=== PATIENT | male | born 1950 ===

== ENCOUNTER 2024-02-24 19:00 | Inpatient (IN) | payer MEDICARE, OTHER, SELFPAY ==
[2024-02-24 16:08] VITALS: BP 157/97
[2024-02-24 16:32] VITALS: BMI 34.1
--- NOTE | 2024-02-24 16:45 | ED.GENMED ---
History of Present Illness
General
Chief Complaint: Chest Problem
Source: patient
Exam Limitations: none
Time Seen by Provider: 02/24/24 16:36
Nursing documentation reviewed up to this point in time: agreed with
Travel History
Have you had any contact with someone who has COVID-19?: No
Do you have any symptoms of coronavirus? Fever > 100 degrees, chills, cough, shortness of breath, sore throat, loss of taste or smell, muscle aches, or headache?: Yes
Symptoms:: see note
History of Present Illness
History of Present Illness:
73-year-old male presents the emergency department complaining of shortness of breath that began around 1 PM today while he was working. Blood pressures have been elevated. He denies chest pain, pressure or heaviness.
Past History
Past History
ED Past Medical History: HTN, Hypercholesterolemia and Other (Aortic stenosis)
ED Past Surgical History: Cardiac (Cardiac pacemaker)
Social History
Tobacco: Former smoker
Alcohol: None
Drug: None
Employment: Employed
Review of Systems
Review of Systems
Allergies reviewed?: Yes
All Other Systems: Not applicable
Constitutional: Reports no symptoms; Denies fever
EENT: Reports no symptoms
Respiratory: Reports trouble breathing
Cardiac: Reports no symptoms
ABD/GI: Reports no symptoms
: Reports no symptoms
Musculoskeletal: Reports no symptoms
Skin: Reports no symptoms
Neurological: Reports no symptoms
Endocrine: Reports no symptoms
Hematologic/Lymphatic: Reports no symptoms
Psychiatric: Reports no symptoms
Phy Exam
Physical Exam
Physical Exam:
Physical Exam
General: Moderate respiratory distress, afebrile
Neck: supple. no meningeal signs. normal posterior pharynx
Heart: s1/s2 regular rate and rhythm, no murmur. equal radial
pulses. Systolic ejection murmur
HEENT: Pupils equal round reactive to light, EOMI
Lungs: Moderate respiratory distress. Rales bilaterally
Abdomen: normal bowel sounds. not tender. no CVAT
Neuro: alert and oriented. no focal neurological deficits cranial nerves II through XII intact
Skin: no rash
Psychiatric: well kept. interactive and cooperative
Extremities: Bilateral 1+ tibial edema. no calf tenderness. negative homans. good distal pulses
Course
Orders/Labs/Results
Orders:
Orders
02/24/24 Dinner
2 Gram Sodium [Sodium, 2 Gram]
At Your Request: Full Participation
02/24/24 16:11
ECG [Electrocardiogram (*1)] Urgent
Reason for Study: Shortness of Breath
EKG- Treatment ONCE
02/24/24 16:34
COVID-19 Antigen Urgent
Source: Nasal Swab
Complete Blood Count/With Diff Urgent
Comprehensive Metabolic Panel Urgent
NT-proBNP Urgent
Comment: PRO BNP ADDED ON BY FLOOR 4:45PM 02-24-24
Troponin I Urgent
Influenza A+B Rapid Molecular Urgent
KRISHNA Source: Nasal Swab
Specimen Description:
02/24/24 16:43
Add On- LAB Urgent
Tests Added?: pro bnp
02/24/24 16:45
CR Chest Portable - 1 View Urgent
Comment:
Reason For Exam: short of breath, hypoxia
Reason Study Needs to be Portable: Patient Unstable
02/24/24 17:25
Azithromycin 500 mg/250 ml [Zithromax Infusion] 500 mg in 250 ml IV NOW
CefTRIAXone [Rocephin] 1,000 mg IV NOW STA
02/24/24 17:34
D-Dimer Urgent
Lactic Acid Q4H
Comment: CANCEL 2nd LACTIC ACID IF 1st LACTIC ACID IS LESS THAN 2
Blood Culture Q30M
KRISHNA Source: Blood/Venous
Specimen Description:
Blood Culture Q30M
KRISHNA Source: Blood/Venous
Specimen Description:
02/24/24 17:50
Sputum Culture [Respiratory Culture/Gram Stain] Routine
KRISHNA Source: Sputum
Specimen Description:
02/24/24 18:05
EKG [Electrocardiogram (*1)] Urgent
Reason for Study: Other
Other Reason for Exam: with trop
02/24/24 18:06
Troponin I Q6H
02/24/24 18:14
CT Chest Pe Study Urgent
Comment:
Reason For Exam: PE
02/24/24 18:19
Admit/Transfer Patient As Directed
Co-Sign Provider:
Level of Care: Inpatient admission
Assign to:: Telemetry
Physician / Group: zechariah wan
Diagnosis: acute hypoxic resp failure 2/2 R sided pna
Reason for Telemetry: Arrhythmia
Date to Stop Telemetry: 02/27/24
Time to Stop Telemetry: 11:00
Reason for Hospitalization: acute hypoxic resp failure 2/2 R sided pna
Expected length of stay greater than two midnights?: Yes
ELOS- Estimated Length of Stay in days: 4
I certify the patient meets the requirements for IP care: Yes
Code Status As Directed
Resuscitation Status: Full Code
02/24/24 18:33
PULMONARY CONSULT Routine
Consulting Provider: Mary De La Torre
Was physician already notified: Yes
Reason for consult: Hypoxic respiratory failure secondary to right-sided pneumonia
02/24/24 19:31
Acetaminophen [Tylenol] 650 mg PO Q4HPRN PRN
Albuterol Nebs [Ventolin Nebules] 2.5 mg INH R Q4HPRN PRN
Bisacodyl [Dulcolax] 10 mg RECTAL [id number] PRN
Docusate W/Senna [Senokot-S] 1 tablet PO BIDPRN PRN
Polyethylene Glycol Powder [Miralax] 17 grams PO DAILYPRN PRN
02/24/24 19:31
Activity As Directed
Activity Level: With Assistance
Intake/ Output As Directed
Frequency: Per unit guidelines
Vital Signs As Directed
Frequency: Per unit guidelines
Weight As Directed
Frequency: Daily
O2 Therapy [RESP] Routine
Nasal Cannula Liter Flow: 6 LPM
Titrate/Wean O2 to maintain O2 sat greater than (%): 92
Pulse Ox/spot Check [RESP] Routine
Quantity: 1
Rx Incentive Spirometry [RESP] Routine
Frequency: q1h while awake
Ot Eval And Treat Routine
Pt Eval And Treat Routine
Activity Level: With Assistance
DX Deep Vein Thrombosis Video Routine
02/24/24 20:00
Labetalol [Trandate] 100 mg PO BID
02/25/24 00:00
Troponin I Q6H
02/25/24 06:00
Complete Blood Count/With Diff IN AM
Comprehensive Metabolic Panel IN AM
Troponin I Q6H
02/25/24 08:00
Amlodipine [Norvasc] 10 mg PO DAILY
Valsartan [Diovan] 320 mg PO DAILY
02/25/24 18:00
Azithromycin 500 mg/250 ml [Zithromax Infusion] 500 mg in 250 ml IV Q24H
CefTRIAXone [Rocephin] 1,000 mg IV Q24H
Enoxaparin Sodium [Lovenox] 40 mg SC QPM
02/26/24 06:00
Complete Blood Count/With Diff IN AM
Comprehensive Metabolic Panel IN AM
02/27/24 06:00
Complete Blood Count/With Diff IN AM
Comprehensive Metabolic Panel IN AM
02/27/24 11:00
DC Protocol for Telemetry ONCE
02/28/24 06:00
Complete Blood Count/With Diff IN AM
Comprehensive Metabolic Panel IN AM
Abnormal Lab Results
02/24/24 02/24/24 02/24/24
16:34 17:34 18:06
MCHC 32.7 L g/dL
(33.0-37.0)
Abs Immat Gran (auto) 0.1 H 10^3/uL
(0-0.05)
Absolute Lymphs (auto) 1.0 L 10^3/uL
(1.2-3.4)
Immature Gran % 0.8 H %
(0-0.5)
Neutrophils % 77.3 H %
(42.2-75.2)
Lymphocytes % 15.2 L %
(20.5-51.1)
D-Dimer 0.58 H ug/mlFEU
(0.00-0.50)
BUN 25 H mg/dl
(9-20)
Glucose 122 H mg/dl
(70-99)
Troponin I 0.035 H* D ng/ml
02/24/24 16:34
02/24/24 16:34
Vital Signs
Initial and Last Documented VS:
Initial Vital Signs
Temp Pulse Resp BP Pulse Ox
98.3 F 82 20 157/97 87
02/24/24 16:08 02/24/24 16:08 02/24/24 16:08 02/24/24 16:08 02/24/24 16:08
Last Documented Vital Signs
Temp Pulse Resp BP Pulse Ox
97.7 F 71 20 158/81 96
02/24/24 19:45 02/24/24 20:49 02/24/24 19:45 02/24/24 20:49 02/24/24 19:45
MDM/Problems Addressed
Differential Diagnosis Includes:
PE, pneumonia, COPD, CHF
MDM/Problems Addressed:
73-year-old male with right-sided pneumonia, do not suspect PE. Admit to hospitalist. Patient improved with oxygen supplement
Chronic conditions affecting care: HTN
Acute Exacerbation and/or Progression of Chronic Illness: HTN
*Radiology
Radiology exam reviewed: radiology read reviewed (Chest x-ray and CT chest showed no signs of PE, right-sided pneumonia)
*Pulse Oximetry
Patient hypoxic: yes
*EKG
Interpreted by ED Provider?: Yes
EKG Intrepretation Date: 02/24/24
EKG Intrepretation Time: 16:18
Interpretation: abnormal
Comparison EKG: changes noted
Heart Rate: 85
Rate: normal
Rhythm: sinus
[place]: normal axis
Interval: normal interval
QRS Pattern: left bundle branch block
Ischemia: no ischemia
*Biodiesel Plant Superintendent Interpretation
Rate: normal
Interpretation: normal
Heart Rate: 85
Rhythm: sinus
*Critical Care Note
Total Time (30-74mins, 75-104mins- exclusive of procedures): 30
comment:
Critical care statement: A total of 30 minutes of critical care time was provided for this patient. This includes management of unstable vital signs, evaluation of the patient at bedside, reviewing the patient's pertinent medical records, discussion
with consultants, review of old EKGs and review of pertinent medical records. This time with separate from time utilized to perform the aforementioned documented procedures
Patient Management
Social determinants of health affecting care: Living situation
Discussion with other providers: Hospitalist
Escalation/DeEscalation of care consider admission/obs:
Admit indicated
ED Attending Note
-
Portions of this chart may have been created with voice recognition software.� Occasional wrong word or��sound alike� substitutions may have occurred due to the inherent limitations of voice recognition software.
Discharge Plan
Departure
Patient Disposition: Admit
Date of Disposition: 02/24/24
Time of Disposition: 17:27
Admit to: IMU
Presentation/result/management discussed w/ accepting MD/DO: Hospitalist
Patient with high blood pressure during this ER visit?: Yes
Condition: Fair
Discharge Problem:
Pneumonia involving right lung
Interventions
Interventions:
*Risk Screen - Suicide Last Done: 02/24/24 16:32
*General Assessment Last Done: 02/24/24 16:25
*Neglect/Abuse Screening Last Done: 02/24/24 16:32
ED- Fall Risk Assessment Last Done: 02/24/24 16:33
*ED COVID-19 Vaccine History Last Done: 02/24/24 16:32
*Nursing Disposition Last Done: 02/24/24 19:54
ED- Cardiac Assessment Last Done: 02/24/24 19:00
ED- Pulmonary Assessment Last Done: 02/24/24 19:00
Discharge Date and Time
Discharge Date/Time: 02/24/24 19:56
[2024-02-24 16:46] LABS: % Basophils 0.5 % (0-2); % Eosinophils 0.9 % (0-6); % Immature Granulocytes 0.8 % (0-0.5); % Lymphocytes 15.2 % (20.5-51.1); % Monocytes 5.3 % (1.7-9.3); % Neutrophils 77.3 % (42.2-75.2); Absolute Eosinophils 0.1 10^3/uL (0-0.7); Absolute Immature Granulocytes 0.1 10^3/uL (0-0.05); Absolute Monocytes 0.3 10^3/uL (0.1-0.6); Hematocrit 46.8 % (39.0-52.0); Hemoglobin 15.3 g/dL (13.0-18.0); Mean Corp Hgb Conc. 32.7 g/dL (33.0-37.0); Mean Corpuscular Hgb 28.8 pg (27.0-31.0); Mean Corpuscular Volume 88.1 fL (80.0-94.0); Mean Platelet Volume 10.3 fL (7.4-10.4); Nucleated Red Blood Cells % 0 % (-); Platelet Count 205 10^3/uL (130-400); Red Blood Cell Count 5.31 10^6/uL (4.70-6.10); Red Cell Dist. Width 14.2 % (11.5-14.5); White Blood Cell Count 6.4 10^3/uL (4.8-10.8)
[2024-02-24 17:02] LABS: ALT (SGPT) 34 U/L (0-50); AST (SGOT) 26 U/L (17-59); Albumin 4.3 g/dl (3.5-5.0); Alkaline Phosphatase 76 U/L (38-126); Blood Urea Nitrogen 25 mg/dl (9-20); Calcium 9.5 mg/dl (8.4-10.2); Carbon Dioxide 23 mmol/L (22-30); Chloride 105 mmol/L (98-107); Estimated Creatinine Clearance 95 ml/min; Glucose 122 mg/dl (70-99); Potassium 4.1 mmol/L (3.5-5.1); Sodium 137 mmol/L (135-145); Total Bilirubin 0.5 mg/dl (0.2-1.3); eGFR > 60.00
[2024-02-24 17:07] LABS: COVID-19 Antigen Negative (Negative)
[2024-02-24 17:13] LABS: NT-proBNP 228 pg/ml; Troponin I < 0.012 ng/ml
[2024-02-24] MEDS: ROCEPHIN 1000 MG IV (17:40)
[2024-02-24] MEDS: ZITHROMAX INFUSION 250 IV (17:40)
--- NOTE | 2024-02-24 17:48 | HPS.HSE ---
Family Physician
<DIMITRI Benites - Last Filed: 02/24/24 18:25>
-
Family Physician: Yogi Azar
Chief Complaint
<DIMITRI Benites - Last Filed: 02/24/24 18:25>
-
Shortness of breath, hypoxia, dizziness
History of Present Illness
73-year-old male complaining of shortness of breath that began around 1 PM just after eating lunch. 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 He reports this morning feeling somewhat dizzy but went to work. He then developed some chest congestion with
sudden shortness of breath. He got in his car to drive home but called his who told him to come to the hospital while he was in route to the hospital he felt like he was going to pass out behind the wheel but did not.. He was noted to be
hypoxic in the ER 87% on room air improved to 91% on 6 L nasal cannula. He just got back 10 days ago from the [facility] where he was attending a wedding. He states many people were sick with a GI bug but he has not heard of any
respiratory illness. He denies fever, chills, chest pain, palpitations, headache, sore throat, abdominal pain, nausea, vomiting, diarrhea. He has chronic bilateral leg +1 edema. He states approximately 1 week ago he noticed his blood pressure was
elevated. His PCP added labetalol 100 mg twice daily to his drug regimen of Norvasc 10 mg daily and valsartan 320 mg daily.
Past medical history hypertension, HLD, moderate aortic stenosis, mild-moderate MR cardiac Medtronic pacemaker-SSS 07/06/2021, former smoker
Medical History
<DIMITRI Benites - Last Filed: 02/24/24 18:25>
Past Medical History
Past Medical History: Reports Other
Additional Past Medical History:
hypertension
HLD
moderate aortic stenosis
mild-moderate MR
cardiac Medtronic pacemaker-SSS 07/06/2021
former smoker
Chronic leg edema
Past Surgical History: Reports Other
Additional Past Surgical History:
cardiac Medtronic pacemaker-SSS 07/06/2021
Ventral hernia repair many years ago
Social History
Tobacco: Former Smoker (56-year 1 pack a day quit 11 years ago)
Alcohol: Daily (1 shot of whiskey nightly)
Personal:
Living: With Family ( nallely)
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
Family History
Family History: Not pertinent
Allergies / Home Medications
Allergies reflects when Allergies were last updated in [employer].
Home Medications with original date entered in [employer]
Allergy/Medication List:
Allergies
Allergy/AdvReac Type Severity Reaction Status Date / Time
No Known Allergies Allergy Verified 02/24/24 16:11
Home Medications
amlodipine 10 mg PO DAILY 02/24/24
labetalol 100 mg PO BID 02/24/24
valsartan 320 mg PO DAILY 02/24/24
Review of Systems
Angellt;DIMITRI Benites - Last Filed: 02/24/24 18:25>
-
History Source: Patient
A 12 point ROS was completed and negative except as noted: Yes
Constitutional: Denies Fever, Fatigue or Chills
EENT: Denies Sore Throat or Runny Nose
Respiratory: Reports Trouble Breathing (Shortness of breath, chest congestion); Denies Cough
Cardiac: Denies Chest Pain, Diaphoresis, Palpitations or Syncope
Abdomen/GI: Denies Abdominal Pain, Nausea, Vomiting, Diarrhea, Constipated, Bloody Stools or Black Stools
: Denies Dysuria, Frequency, Flank Pain, Incontinence, Difficulty Voiding or Urgency
Musculoskeletal: Reports Edema; Denies Joint Pain
Skin: Denies Itching or Rash
Neurological: Reports Dizzy; Denies Headache or Weakness
Endocrine: Reports No Symptoms
Hematologic/Lymphatic: Reports No Symptoms
Psych: Reports Calm
Physical Exam
<DIMITRI Benites - Last Filed: 02/24/24 18:25>
Vital Signs
Vital Signs
Temp Pulse Resp BP Pulse Ox
98.3 F 85 27 157/97 91
02/24/24 16:08 02/24/24 16:25 02/24/24 16:25 02/24/24 16:08 02/24/24 16:35
Physical Exam
General: Comfortable and Conversant; No Pain, Fever or Chills
HEENT: NormoCephalic, Anicteric, Moist mucous membranes, PERRLA, [place] Conjunctivae, No Ptosis, Neck Nontender and Oxygen (6 L nasal cannula)
Respiratory: Rhonchi
Cardiac: S1/S2, Murmur (Holosystolic murmur 3/6), Peripheral Edema (Chronic bilateral +1) and Other (Paced rhythm); No Rub or Gallop
Breast: Deferred by me
GI: Soft, Non Tender, Non Distended, Normal Bowel Sounds, No Hepatosplenomegaly and Other (Soft ventral hernia present nontender)
Rectal: Deferred by Provider
Genito-urinary: Deferred by me
Musculoskeletal: No Clubbing, No Cyanosis, Edema, Left Lower Extremity (+1 pitting) and Edema, Right Lower Extremity (+1 pitting); No Edema, Left Upper Extremity or Edema, Right Upper Extremity
Skin: Warm and Dry; No Rash
Neuro: AO x 3, No Motor Deficits, Nonfocal/grossly intact, Cranial Nerves Intact and No Sensory Deficits; No Slurred Speech, Facial Droop, Tremors or Sedated
Psych: Calm
Laboratory Results
<DIMITRI Benites - Last Filed: 02/24/24 18:25>
-
02/24/24 16:34
02/24/24 16:34
Laboratory Results
Total Bilirubin 0.5 mg/dl (0.2-1.3) 02/24/24 16:34
AST 26 U/L (17-59) 02/24/24 16:34
ALT 34 U/L (0-50) 02/24/24 16:34
Alkaline Phosphatase 76 U/L (38-126) 02/24/24 16:34
Troponin I < 0.012 ng/ml 02/24/24 16:34
Data Reviewed
<DIMITRI Benites - Last Filed: 02/24/24 18:25>
-
Diagnostic Radiology: Report Reviewed by me
Lab Data: Labs Reviewed by me
Impression/Plan
<DIMITRI Benites - Last Filed: 02/24/24 18:25>
-
Impression/plan:
Admit to telemetry
#Acute hypoxic respiratory failure secondary to Right-sided pneumonia vs poss PE
87% RA , 91% 6 L nasal cannula
Recent travel 10 days ago to [facility]
COVID/Flu-negative
-WBC 6.4, 98.3 F, 157/97
-IV Rocephin, IV Zithromax
-Incentive spirometry
-Sputum culture, blood cultures x 2
-Follow CBC, BMP
-Check CT PE study
-PT/OT/case management consult
CXR: Right-sided pneumonia
#HTN�benign
BP 157/97
-Continue labetalol 100 mg twice daily( recently added 1 week ago by pcp)
-cont amlodipine 10 mg daily, valsartan 320 mg daily
#HLD
- no reported meds
#Permanent Medtronic pacemaker�SSS 06/25/2021
Medtronic; Model#W1 NELSON 1; SN: [id number]
#Aortic stenosis
-Follows with [facility]ology
2D echo 09/13/2023: EF 55 to 60%, no wall abnormalities, stage II diastolic dysfunction. Bicuspid aortic valve with mild to moderate AR peak mean gradient 49 mmHg / 22 mmHg. Mild to moderate MR
#Former smoker
56-year 1 pack a day quit 11 years ago
#Daily alcohol use
1 shot of whiskey with dinner
No concern for withdrawal
DVT prophylaxis
Subcu Lovenox if CT PE study negative for PE
Full code
<Jolie Crespo MD - Last Filed: 02/24/24 18:34>
-
73-year-old returns from [facility] about 10 days ago came to the hospital because of sudden shortness of breath happened today. No fever no chest pain
I saw and examined the patient.
The TRANSFORMER MAKER or PA's note was reviewed and I agree with the note.
Comment:
CVS: S1-S2 normal, systolic murmur at aortic area
Chest: rales right side with scattered wheeze
Abdomen: Soft, NT / Bowel sounds present
Extremities: No edema, normal pulses
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
X-ray reviewed by [id number] pneumonia
# Acute hypoxic respiratory failure secondary to pneumonia
Rule out PE
CT of the chest PE study
Oxygen supplementation
Ceftriaxone Zithromax
Sputum cultures and blood cultures
Pulmonary consultation
# Hypertension-continue labetalol valsartan amlodipine
# Pacemaker
# Aortic stenosis
# Daily alcohol use 1 short of whiskey
Thiamine
MSAS protocol
# Ex-smoker
Impression/plan:
Admit to telemetry
#Acute hypoxic respiratory failure secondary to Right-sided pneumonia vs poss PE
87% RA , 91% 6 L nasal cannula
Recent travel 10 days ago to [facility]
COVID/Flu-negative
-WBC 6.4, 98.3 F, 157/97
-IV Rocephin, IV Zithromax
-Incentive spirometry
-Sputum culture, blood cultures x 2
-Follow CBC, BMP
-Check CT PE study
-PT/OT/case management consult
CXR: Right-sided pneumonia
#HTN�benign
BP 157/97
-Continue labetalol 100 mg twice daily( recently added 1 week ago by pcp)
-cont amlodipine 10 mg daily, valsartan 320 mg daily
#HLD
- no reported meds
#Permanent Medtronic pacemaker�SSS 06/25/2021
Medtronic; Model#W1 NELSON 1; SN: [id number]
#Aortic stenosis
-Follows with [facility]
2D echo 09/13/2023: EF 55 to 60%, no wall abnormalities, stage II diastolic dysfunction. Bicuspid aortic valve with mild to moderate AR peak mean gradient 49 mmHg / 22 mmHg. Mild to moderate MR
#Former smoker
56-year 1 pack a day quit 11 years ago
#Daily alcohol use
1 shot of whiskey with dinner
No concern for withdrawal
DVT prophylaxis
Subcu Lovenox if CT PE study negative for PE
Full code
[2024-02-24 18:02] LABS: Lactic Acid 0.9 mmol/L (0.7-2.0)
[2024-02-24 18:05] LABS: D-Dimer 0.58 ug/mlFEU (0.00-0.50)
[2024-02-24 18:48] LABS: Troponin I 0.035 ng/ml
[2024-02-24 19:45] VITALS: BP 158/81
[2024-02-24] MEDS: MYSOLINE 125 MG PO (20:48)
[2024-02-24] MEDS: TRANDATE 100 MG PO (20:49)
[2024-02-24 21:00] VITALS: BMI 33.0
[2024-02-24] MEDS: DIOVAN 320 MG PO (22:22)
[2024-02-24 23:25] VITALS: BP 121/60
[2024-02-25] VITALS (7 sets, daily range): BP systolic 142–178; BP diastolic 76–98
[2024-02-25 01:36] LABS: Troponin I 0.039 ng/ml
--- NOTE | 2024-02-25 06:35 | PTCARENOTE ---
Pt admitted from ED, AAOx3. No c/o pain. Ambulated without issues with standby assist. Pt afebrile. Intermittently hypertensive. CORPORATE INVESTIGATOR aware. Trending troponin levels overnight, EKG done x1. Pt on 5L O2 via NC. No dyspnea on exertion or cough
noted. Call calvo within reach. Awaiting further plan.
[2024-02-25 06:47] LABS: % Basophils 0.3 % (0-2); % Eosinophils 0.7 % (0-6); % Immature Granulocytes 0.3 % (0-0.5); % Lymphocytes 17.1 % (20.5-51.1); % Monocytes 9.6 % (1.7-9.3); Absolute Eosinophils 0.1 10^3/uL (0-0.7); Absolute Lymphocytes 1.3 10^3/uL (1.2-3.4); Absolute Monocytes 0.7 10^3/uL (0.1-0.6); Absolute Neutrophils 5.4 10^3/uL (1.4-6.5); Hematocrit 44.4 % (39.0-52.0); Hemoglobin 15.1 g/dL (13.0-18.0); Mean Corpuscular Hgb 29.4 pg (27.0-31.0); Mean Corpuscular Volume 86.4 fL (80.0-94.0); Mean Platelet Volume 10.1 fL (7.4-10.4); Nucleated Red Blood Cells % 0 % (-); Platelet Count 202 10^3/uL (130-400); Red Blood Cell Count 5.14 10^6/uL (4.70-6.10); Red Cell Dist. Width 14.1 % (11.5-14.5); White Blood Cell Count 7.5 10^3/uL (4.8-10.8)
[2024-02-25 07:27] LABS: Troponin I 0.025 ng/ml
[2024-02-25 07:28] LABS: ALT (SGPT) 30 U/L (0-50); AST (SGOT) 24 U/L (17-59); Albumin 3.8 g/dl (3.5-5.0); Alkaline Phosphatase 69 U/L (38-126); Blood Urea Nitrogen 19 mg/dl (9-20); Calcium 9.3 mg/dl (8.4-10.2); Carbon Dioxide 29 mmol/L (22-30); Chloride 104 mmol/L (98-107); Estimated Creatinine Clearance 107 ml/min; Glucose 99 mg/dl (70-99); Potassium 4.3 mmol/L (3.5-5.1); Sodium 139 mmol/L (135-145); Total Bilirubin 0.8 mg/dl (0.2-1.3); Total Protein 6.5 g/dl (6.3-8.2); eGFR > 60.00
[2024-02-25] MEDS: MYSOLINE 125 MG PO ×2 (07:38→22:06)
[2024-02-25] MEDS: TRANDATE 100 MG PO ×2 (07:38→20:23)
[2024-02-25] MEDS: PROTONIX 40 MG PO (07:38)
[2024-02-25] MEDS: NORVASC 10 MG PO (07:38)
--- NOTE | 2024-02-25 09:51 | W.PN.HOSP.TC ---
Addendum entered and electronically signed by Jolie Crespo MD 02/25/24 10:46:
Troponin elevation-nonischemic myocardial injury likely
Addendum entered and electronically signed by Jolie Crespo MD 02/25/24 10:46:
After reviewing the case with pulm, we have decided to try 1 dose of Lasix today and repeat chest x-ray in the morning
Patient does have moderate mitral regurgitation and aortic stenosis
Sudden onset without fever, elevated white count does not quite fit with pneumonia
? Atypical pulmonary edema
Original Note:
Today's Communication/Plan
-
Wean oxygen as tolerated
Encourage out of bed and activity
Continue antibiotics
Await blood cultures
Assessment / Plan
Assessment / Plan
CT of the chest-no PE. Right upper lobe, right lower lobe and right middle lobe pneumonia, small right pleural effusion
He feels much better
Cardiovascular system S1-S2 appreciated
Few rales right side
Abd-Soft and nontender
TRAVELING PASSENGER AGENT nonfocal
# Multilobar pneumonia on the right side
Treat as community-acquired pneumonia
Acute hypoxic respiratory failure secondary to pneumonia
No PE
Oxygen supplementation, wean as tolerated.
Ceftriaxone Zithromax
Sputum cultures if possible ,blood cultures pending
Pulmonary consultation appreciated
# Hypertension-continue labetalol valsartan amlodipine
# Essential tremors-on primidone (patient confirms no history of seizures)
# Pacemaker
# Aortic stenosis-OP Cards eval
# Daily alcohol use 1 short of whiskey
Thiamine
MSAS score
# Ex-smoker
# DVT prophylaxis- Lovenox
D/W Pulm
Anticipated Discharge: Within 24 hours
Subjective/Interval History
-
Date of Service: February 25, 2024
Objective Data
-
Labs:
Laboratory Results
02/25/24
06:40
WBC 7.5
Hgb 15.1
Hct 44.4
Plt Count 202
Sodium 139
Potassium 4.3
Chloride 104
Carbon Dioxide 29
BUN 19
Creatinine 0.7
Glucose 99
Calcium 9.3
Total Bilirubin 0.8
AST 24
ALT 30
Alkaline Phosphatase 69
Vital Signs:
Vital Signs
Temp Pulse Resp BP Pulse Ox
98.1 F 63 18 153/78 100
02/25/24 07:52 02/25/24 07:52 02/25/24 07:52 02/25/24 07:52 02/25/24 07:52
--- NOTE | 2024-02-25 10:09 | CON.PUL ---
Consultation
Consultation Request
Date/Time Consultation Requested: 02/24
Date/Time Consultation Performed: 02/24
Reason for Consultation: Hypoxia, pneumonia
Medical History
-
History of Present Illness:
History obtained from the chart, patient and reviewing outpatient records. Patient is a 73-year-old male with hypertension, mild aortic stenosis, pacemaker for sick sinus syndrome who recently traveled to [facility] with family. Patient
developed increased shortness of breath, dizziness and some diarrhea. He stated his symptoms started pretty quickly over the last few days. 10 days ago he returned from [facility], had some occasional diarrhea. There were some GI illness
going around at that time. He denies any fevers, chills, sweats. He also notes lower extremity swelling and is on antihypertensive therapy. Upon arrival to [facility], afebrile, pulse 85, breathing at 27, blood pressure 157/97, 87%.
Normal white count, COVID and flu negative. CT chest was negative for PE but showed right-sided infiltrate. She was given ceftriaxone and azithromycin in the ED. Cultures obtained. We are asked to comment on his pulmonary process
Presently he is feeling he is back to his baseline. Denies PND, orthopnea, falls, syncope.
.
PMH: Hypertension, sick sinus syndrome with pacemaker placement. History of lower gastric ulcer with H. pylori, hospitalized at [facility] with GI bleed May 2023. History of bicuspid aortic valve with moderate aortic stenosis
Past Medical History
Past Medical History: None (See above)
Past Surgical History: None (See above)
Social History
Tobacco: Former Smoker ([id number], quit 2012)
Alcohol: Daily (1 shot of whiskey a day)
Drug: None
Living: With Family
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
Environmental Exposures: Born in [facility]
Family History
Family History: Other (Family history negative for blood clots, lung cancer, lung disease)
Allergies / Home Medications
Allergies
Allergy/AdvReac Type Severity Reaction Status Date / Time
No Known Allergies Allergy Verified 02/24/24 16:11
Home Medications
�Medication �Instructions �Recorded �Confirmed �Last Taken �Type
amlodipine 10 mg tablet 10 mg PO DAILY 02/24/24 02/24/24 02/24/24 History
labetalol 200 mg tablet 100 mg PO BID 02/24/24 02/24/24 02/24/24 History
pantoprazole 40 mg tablet,delayed 40 mg PO DAILY 02/24/24 02/24/24 02/24/24 History
release
primidone 250 mg tablet 125 mg PO BID 02/24/24 02/24/24 02/24/24 History
valsartan 320 mg tablet 320 mg PO QPM 02/24/24 02/24/24 02/23/24 History
Review of Systems
Vitals / Labs / Diagnostic Testing
Vital Signs
Temp Pulse Resp BP Pulse Ox
98.1 F 63 18 153/78 100
02/25/24 07:52 02/25/24 07:52 02/25/24 07:52 02/25/24 07:52 02/25/24 07:52
Lab Data
02/25/24 06:40
02/25/24 06:40
Microbiology
02/24/24 16:34 Nasal Swab Influenza Types A & B (CINDY) - Final
Negative for Influenza A & B, NAAT
Negative results must be combined with clinical observations
and patient history.
Nucleic Acid Amplification test (NAAT)performed on the
[employer] platform.
Diagnostic Testing:
Physical Exam
-
HEENT: Normocephalic and Anicteric
Cardiovascular: S1/S2, Regular Rhythm, Murmur (2/6 systolic murmur), Peripheral Edema (tr) and Calf Tenderness (n)
Respiratory: Wheeze (n), Rales (n), Rhonchi (n) and Non-Labored Respirations
GI: Soft, Non Distended and Non Tender
Neurology: Awake, Alert and No Motor Deficits (Able to sit up without assistance)
Skin: Good Color and Other (No clubbing, cyanosis)
General: Comfortable
Assessment
-
73-year-old male with history of hypertension, hyperlipidemia, sick sinus syndrome with pacemaker placement and aortic stenosis who presents with acute onset of shortness of breath. He also had some nonspecific symptoms of lightheadedness,
dizziness and loose stool. Found to be hypoxic requiring 6 L. We are asked to help from pulmonary standpoint
Acute hypoxic respiratory insufficiency, 87% room air in the ED
Right-sided infiltrate per CT imaging
Suspected Multi lobar pneumonia
Cannot rule out component of heart failure
Crackles on exam in ED
Presently resolved
Hypertension, poorly controlled
Mildly elevated troponin noted
Conditions present prior to admission
Hypertension/hyperlipidemia
Sick sinus syndrome, history of pacemaker
Moderate aortic stenosis
Bicuspid aortic valve
Mild pulm hypertension, PA pressure 45, per echo August 2023
50+ pack year history of smoking quit 2012
Daily alcohol use
Suspected sleep disordered breathing
Plan/recommendations
At this time, patient appears to be comfortable. He states he is feeling much better, back to his baseline. Salient features include CT imaging with suggested right-sided pneumonia. Patient denies any history of nausea/emesis but does admit to
some loose stool
Rapid onset and rapid improvement suggest possibility of pulmonary edema
Reviewed outpatient records. Patient apparently has poorly controlled blood pressure
Patient denies any dietary indiscretion or significant weight changes. He admits to chronic lower extreme edema
EKG with paced rhythm
Moving forward
Continue with empiric antibiotics for presumed community-acquired pneumonia
Rapid onset and rapid improvement suggest possible component of pulm edema
proBNP 228
Mildly elevated troponin noted
Check ambulatory saturation on room air
EKG with paced rhythm
If symptoms persist, may require additional testing, cardiac evaluation
Would recommend outpatient sleep evaluation given cardiac comorbidities
Reviewed with patient
Reviewed with primary service
Will follow
[2024-02-25] MEDS: VITAMIN B1 200 MG PO (11:05)
[2024-02-25] MEDS: LASIX 20 MG IV (11:05)
[2024-02-25] MEDS: LOVENOX 40 MG SC (17:11)
[2024-02-25] MEDS: STERILE WATER FOR INJECTION 10 ML IV (17:12)
[2024-02-25] MEDS: ROCEPHIN 1000 MG IV (17:12)
[2024-02-25] MEDS: ZITHROMAX INFUSION 250 IV (17:12)
[2024-02-25] MEDS: DIOVAN 320 MG PO (20:23)
[2024-02-26 03:00] VITALS: BP 158/81
[2024-02-26 06:00] VITALS: BMI 31.4
[2024-02-26 06:55] LABS: % Basophils 0.3 % (0-2); % Eosinophils 0.4 % (0-6); % Immature Granulocytes 0.1 % (0-0.5); % Lymphocytes 19.8 % (20.5-51.1); % Monocytes 9.8 % (1.7-9.3); % Neutrophils 69.6 % (42.2-75.2); Absolute Lymphocytes 1.5 10^3/uL (1.2-3.4); Absolute Monocytes 0.7 10^3/uL (0.1-0.6); Absolute Neutrophils 5.2 10^3/uL (1.4-6.5); Hematocrit 45.7 % (39.0-52.0); Hemoglobin 14.8 g/dL (13.0-18.0); Mean Corp Hgb Conc. 32.4 g/dL (33.0-37.0); Mean Corpuscular Hgb 28.6 pg (27.0-31.0); Mean Corpuscular Volume 88.4 fL (80.0-94.0); Mean Platelet Volume 10.6 fL (7.4-10.4); Nucleated Red Blood Cells % 0 % (-); Platelet Count 218 10^3/uL (130-400); Red Blood Cell Count 5.17 10^6/uL (4.70-6.10); Red Cell Dist. Width 13.9 % (11.5-14.5); White Blood Cell Count 7.5 10^3/uL (4.8-10.8)
[2024-02-26 07:24] LABS: Blood Urea Nitrogen 21 mg/dl (9-20); Calcium 9.2 mg/dl (8.4-10.2); Carbon Dioxide 30 mmol/L (22-30); Chloride 101 mmol/L (98-107); Estimated Creatinine Clearance 91 ml/min; Glucose 120 mg/dl (70-99); Potassium 4.2 mmol/L (3.5-5.1); Sodium 137 mmol/L (135-145); eGFR > 60.00
[2024-02-26] MEDS: PROTONIX 40 MG PO (07:48)
[2024-02-26] MEDS: VITAMIN B1 200 MG PO (07:48)
[2024-02-26] MEDS: MYSOLINE 125 MG PO ×2 (07:48→19:47)
[2024-02-26] MEDS: NORVASC 10 MG PO (07:49)
[2024-02-26] MEDS: TRANDATE 100 MG PO ×2 (07:49→19:47)
[2024-02-26 07:51] VITALS: BP 155/77
--- NOTE | 2024-02-26 10:09 | W.PN.PUL3 ---
Today's Communication / Plan
-
Transition to oral doxycycline
Consider follow-up with cardiology. Patient has established landing scaler
Patient is symptom-free at this time
Strongly consider outpatient HST, recommendations left in chart
Disposition efforts
Assessment
-
73-year-old male with history of hypertension, hyperlipidemia, sick sinus syndrome with pacemaker placement and aortic stenosis who presents with acute onset of shortness of breath. He also had some nonspecific symptoms of lightheadedness,
dizziness and loose stool. Found to be hypoxic requiring 6 L. We are asked to help from pulmonary standpoint
Acute hypoxic respiratory insufficiency, 87% room air in the ED
Right-sided infiltrate per CT imaging
Suspected Multi lobar pneumonia
Cannot rule out component of heart failure
Crackles on exam in ED
Presently resolved
Hypertension, poorly controlled
Mildly elevated troponin noted
Conditions present prior to admission
Hypertension/hyperlipidemia
Sick sinus syndrome, history of pacemaker
Moderate aortic stenosis
Bicuspid aortic valve
Mild pulm hypertension, PA pressure 45, per echo August 2023
50+ pack year history of smoking quit 2012
Daily alcohol use
Suspected sleep disordered breathing
Plan/recommendations
At this time, patient appears to be comfortable. He states he is feeling much better, back to his baseline.
Rapid onset and rapid improvement suggest possibility of pulmonary edema
Chest x-ray today has improved
Reviewed outpatient records. Patient apparently has poorly controlled blood pressure
Patient denies any dietary indiscretion or significant weight changes. He admits to chronic lower extreme edema
EKG with paced rhythm
Moving forward
Continue with empiric antibiotics for presumed community-acquired pneumonia, okay to transition to doxycycline to complete 7-day course
Rapid onset and rapid improvement suggest possible component of pulm edema
proBNP 228
Mildly elevated troponin noted
EKG with paced rhythm
Consider follow-up with landing scaler (Garo Guerra). Last saw 01/26/24
If symptoms persist, may require additional testing, cardiac evaluation
Would recommend outpatient sleep evaluation given cardiac comorbidities
Reviewed pathophysiology of untreated sleep disordered breathing
Reviewed with patient
Reviewed with primary service
Disposition efforts
Subjective Data
-
Date of Service:
Date of Service: February 26, 2024
Subjective:
Patient examined earlier this morning. Late entry. Patient feels he is back to his baseline. Denies chest pain, shortness of breath, cough, nausea, abdominal pain. Ambulating to the bathroom without difficulty
Objective Data
Data Reviewed
Vital Signs / I&O / Oxygen:
Vital Signs
Temp Pulse Resp BP Pulse Ox
98.6 F 68 18 155/77 95
02/26/24 07:51 02/26/24 07:51 02/26/24 07:51 02/26/24 07:51 02/26/24 07:51
Intake and Output
02/25/24 02/26/24 02/27/24
06:59 06:59 06:59
Intake Total 360 / 360
Balance 360 / 360
SaO2 95
Nasal Cannula flow liters per 5
minute
Physical Exam
General: Comfortable
HEENT: Normocephalic, Anicteric and Other (Narrow posterior oropharynx)
Cardiovascular: S1-S2, Regular Rhythm, Murmur (n), Rub (n), Peripheral Edema (n) and Calf Tenderness (n)
Respiratory: Wheeze (n), Crackles (Minimal at base), Rhonchi (n) and Non-Labored Respirations
GI: Soft, Non Distended and Non Tender
Neurology: Awake, Alert and No Motor Deficits (Ambulating)
Skin: Jaundice (n), Rash (n) and Bruising (n)
Labs/Micro/Reports
Lab Data
02/26/24 06:26
02/26/24 06:26
Microbiology
02/24/24 17:34 Blood/Venous Blood Culture - Preliminary
No Growth in 24 hours- Final report to follow
02/24/24 17:34 Blood/Venous Blood Culture - Preliminary
No Growth in 24 hours- Final report to follow
02/24/24 16:34 Nasal Swab Influenza Types A & B (CINDY) - Final
Negative for Influenza A & B, NAAT
Negative results must be combined with clinical observations
and patient history.
Nucleic Acid Amplification test (NAAT)performed on the
[employer] platform.
--- NOTE | 2024-02-26 10:32 | CM ---
Met with patient at bedside. He lives with in 2 level home with 7 steps to enter. there is a bathroom on each floor.
he is independent prior to admit and in room. he states his car is outside and he hopes to go home today.
he does not own or use any DME.
PCP Rm Azar
RX [facility]
Plan: home no needs.
[2024-02-26] MEDS: LOW STRENGTH ASPIRIN 81 MG PO (11:38)
[2024-02-26 11:51] VITALS: BP 138/79
--- NOTE | 2024-02-26 13:38 | W.PN.HOSP.TC ---
Today's Communication/Plan
-
Cards eval
If needs ECHO will keep
Assessment / Plan
Assessment / Plan
CT of the chest-no PE. Right upper lobe, right lower lobe and right middle lobe pneumonia, small right pleural effusion
He feels much better
Cardiovascular system S1-S2 appreciated
Few rales right side
Abd-Soft and nontender
[employer]IAL [employer]Y [employer]ER nonfocal
# Acute Hypoxic Resp failure-6L O2 on admission
Multilobar pneumonia on the right side on imaging
Treated as community-acquired pneumonia
No PE
Patient has been weaned off of oxygen
Ceftriaxone Zithromax, change to PO
Cultures negative
Symptomatology, no white count or fever-not convinced this is entirely pneumonia alone.
Patient was given a dose of Lasix yesterday with improvement in chest x-ray, oxygenation
His weight has come down by several pounds in the past 48 hours
Unclear if there is also an element of pulmonary edema-atypical
Spoke to outpatient rig site engineer Dr. Garo Guerra , agrees with addition of ASA. Unfortunately cannot see pt soon after discharge.
Therefore request a cardiology eval here prior to discharge
#Trop Likely nonischemic myocardial injury. Add ASA
# Hypertension-On Labetalol Valsartan Amlodipine
Not sure with Moderate in Aug 2023 if afterload reducing meds are best choice.
# Essential tremors-on primidone (patient confirms no history of seizures)
# Pacemaker
# Moderate Bicuspid Aortic stenosis- and MR per ECHO 09/08
# Daily alcohol use 1 short of whiskey
Thiamine
MSAS score
# PUD-patient was supposed to get endoscopy Tuesday. He is aware that this may need to be postponed in a few weeks.
# Ex-smoker
# DVT prophylaxis- Lovenox
D/W Pulm
Spoke to OP Cards.
Anticipated Discharge: Within 24 hours
Subjective/Interval History
-
Date of Service: February 26, 2024
Objective Data
-
Labs:
Laboratory Results
02/26/24
06:26
WBC 7.5
Hgb 14.8
Hct 45.7
Plt Count 218
Sodium 137
Potassium 4.2
Chloride 101
Carbon Dioxide 30
BUN 21 H
Creatinine 0.8
Glucose 120 H
Calcium 9.2
Vital Signs:
Vital Signs
Temp Pulse Resp BP Pulse Ox
98.5 F 67 18 138/79 96
02/26/24 11:51 02/26/24 11:51 02/26/24 11:51 02/26/24 11:51 02/26/24 11:51
I&O
02/25/24 02/26/24 02/27/24
06:59 06:59 06:59
Intake Total 360 / 360
Balance 360 / 360
[2024-02-26 15:49] VITALS: BP 140/76
[2024-02-26] MEDS: LOVENOX 40 MG SC (17:03)
[2024-02-26] MEDS: VIBRAMYCIN 100 MG PO (19:47)
[2024-02-26] MEDS: DIOVAN 320 MG PO (19:47)
[2024-02-26 19:51] VITALS: BP 152/79
[2024-02-26 23:00] VITALS: BP 158/83
--- NOTE | 2024-02-26 23:09 | CON.CAR ---
Consultation
Consultation Request
Date/Time Consultation Requested: 02/26/2024 1331
Date/Time Consultation Performed: 02/26/2024 1400
Requesting Provider: Jolie Crespo MD
Performing Provider: Kamar Pope DO
Reason for Consultation: SOB
Medical History
-
Chief Complaint: Cough, SOB
History of Present Illness:
Patient is a pleasant 73-year-old male with a past medical history significant for hypertension, hyperlipidemia, moderate aortic stenosis, mild to moderate MR, sick sinus syndrome status post dual-chamber Medtronic pacemaker 06/2021, former smoker
who presents with a 1 day history of sudden onset shortness of breath and cough. In the emergency department, patient was noted to be hypoxic on room air with improvement on nasal cannula. Chest x-ray in the emergency department demonstrated
right-sided pneumonia and patient was initiated on antibiotic therapy. Patient afebrile no white count however significant improvement in overall breathing. Patient was evaluated by pulmonology who recommended transition to oral antibiotic
therapy. Due to acute onset and resolution, there was concern for pulmonary edema however this was not demonstrated on imaging. BNP 228. Leading to this event, no chest pain, other episodes of shortness of breath, PND, orthopnea, edema, or
abdominal distention. In review patient today, he reports that he overall feels well and back to baseline without shortness of breath, cough, chest pain, shortness of breath, palpitations, lightheadedness, dizziness, near-syncope, syncope, PND,
orthopnea, edema, or weakness.
Past Medical History
Past Medical History: Other (See HPI)
Past Surgical History: Other (Medtronic pacemaker 06/2021, hernia repair)
Social History
Tobacco: Former Smoker
Alcohol: Occasional
Drug: None
Personal:
Living: With Family
Employment: Employed
Family History
Family History: Reviewed & Not Pertinent
Allergies / Home Medications
Allergy/AdvReac Type Severity Reaction Status Date / Time
No Known Allergies Allergy Verified 02/24/24 16:11
�Medication �Instructions �Recorded �Confirmed �Type
amlodipine 10 mg tablet 10 mg PO DAILY 02/24/24 02/24/24 History
labetalol 200 mg tablet 100 mg PO BID 02/24/24 02/24/24 History
pantoprazole 40 mg tablet,delayed 40 mg PO DAILY 02/24/24 02/24/24 History
release
primidone 250 mg tablet 125 mg PO BID 02/24/24 02/24/24 History
valsartan 320 mg tablet 320 mg PO QPM 02/24/24 02/24/24 History
Review of Systems
-
History Source: Patient
Constitutional: No Symptoms
EENT: No Symptoms
Respiratory: Cough and Trouble Breathing
Cardiac: No Symptoms
Abdomen/GI: No Symptoms
: No Symptoms
Musculoskeletal: No Symptoms
Skin: No Symptoms
Neurological: No Symptoms
Endocrine: No Symptoms
Hematologic/Lymphatic: No Symptoms
Physical Exam
Vital Signs
Temp Pulse Resp BP Pulse Ox
98.0 F 66 18 152/79 97
02/26/24 19:51 02/26/24 19:51 02/26/24 19:51 02/26/24 19:51 02/26/24 19:51
Lab Results
02/26/24 06:26
02/26/24 06:26
Troponin I 0.025 ng/ml D 02/25/24 06:40
Eqb-P-Wlhfvtxoqlp Pept 228 pg/ml 02/24/24 16:34
Physical Exam
General: Well Developed, Well Nourished, No Apparent Distress and Comfortable
HEENT: Normocephalic, Anicteric and Moist Mucous Membranes
Respiratory: Clear and Other (No wheezes, rhonchi, rales)
Cardiac: S1/S2, Regular Rhythm and Other (2/6 ELIDA, no rub, gallop)
Breast: Deferred by me
GI: Soft, Non Tender, Non Distended and Normal Bowel Sounds
Rectal: Deferred by Provider
Musculoskeletal: No Clubbing, No Cyanosis and No Edema
Skin: Warm and Dry
Neuro: Awake, Alert, Oriented and No Motor Deficits
Psych: Calm
Impression / Plan
-
Primary senior chemical engineer: Dr. Garo Guerra ([facility])
Impression:
Acute hypoxic respiratory failure, resolved
Right lung pneumonia on antibiotics
Troponin elevation, possibly type II ID in the setting of respiratory failure
Bicuspid aortic valve with moderate aortic stenosis
Hypertension
Hyperlipidemia
Sick sinus syndrome status post dual-chamber Medtronic pacemaker 06/2021
Daily alcohol use
GERD
Former smoker
Echo 09/13/2023: Normal LV, RV size and function, EF 55 to 60%, bicuspid aortic valve with moderate aortic stenosis mean gradient 22 mmHg, mild to moderate MR.
Plan:
� 2D echocardiogram
� Monitor on telemetry
� Antibiotic therapy per primary and pulmonary service
� Would likely benefit from outpatient ischemic evaluation in the setting of mild troponin elevation with respiratory failure; patient asymptomatic currently. Would started on aspirin 81 mg daily unless contraindication
� Lipid panel for risk factor stratification
� Recommend close follow-up with Dr. Garo Guerra 1 to 2 weeks following discharge from this hospitalization
Data Reviewed
-
EKG: Tracing Personally Visualized and interpreted
Radiology: Report Reviewed by me
Medical Tests (Nuc Med, Echo etc): Report Reviewed by me
Labs: Labs Reviewed by me
Old Records: Reviewed
[2024-02-27 03:00] VITALS: BP 144/82
[2024-02-27 06:00] VITALS: BMI 31.4
[2024-02-27] MEDS: PROTONIX 40 MG PO (06:01)
[2024-02-27 06:49] LABS: % Basophils 0.4 % (0-2); % Eosinophils 0.9 % (0-6); % Immature Granulocytes 0.4 % (0-0.5); % Lymphocytes 27.7 % (20.5-51.1); % Monocytes 10.5 % (1.7-9.3); % Neutrophils 60.1 % (42.2-75.2); Absolute Lymphocytes 1.3 10^3/uL (1.2-3.4); Absolute Monocytes 0.5 10^3/uL (0.1-0.6); Absolute Neutrophils 2.8 10^3/uL (1.4-6.5); Hematocrit 42.2 % (39.0-52.0); Hemoglobin 14.3 g/dL (13.0-18.0); Mean Corp Hgb Conc. 33.9 g/dL (33.0-37.0); Mean Corpuscular Hgb 29.2 pg (27.0-31.0); Mean Corpuscular Volume 86.3 fL (80.0-94.0); Mean Platelet Volume 10.3 fL (7.4-10.4); Nucleated Red Blood Cells % 0 % (-); Platelet Count 201 10^3/uL (130-400); Red Blood Cell Count 4.89 10^6/uL (4.70-6.10); White Blood Cell Count 4.7 10^3/uL (4.8-10.8)
[2024-02-27 07:00] VITALS: BP 160/82
[2024-02-27] MEDS: VIBRAMYCIN 100 MG PO (07:52)
[2024-02-27] MEDS: TRANDATE 100 MG PO (07:53)
[2024-02-27] MEDS: MYSOLINE 125 MG PO (07:53)
[2024-02-27] MEDS: NORVASC 10 MG PO (07:53)
[2024-02-27] MEDS: VITAMIN B1 200 MG PO (07:53)
[2024-02-27] MEDS: ASPIR LOW (ENTERIC COATED) 81 MG PO (07:53)
--- NOTE | 2024-02-27 09:45 | W.PN.CARDCBS ---
Addendum entered and electronically signed by Sampson Erickson DO 02/27/24 12:28:
I saw and examined the patient.
The Wool Grader's note was reviewed and I agree with the note.
Comment:
Plan:
Stable cv status
If echo stable, ok for d/c from cardiac standpoint
Outpt follow up with Dr Guerra
Discussed with primary service.
Original Note:
Today's Communication / Plan
-
Await echo results
Continue abx
If echo stable, ok for discharge
Follow up w/ Dr. Guerra
Impression / Plan
-
Primary dish washer: Dr. Garo Guerra ([facility])
Impression:
Acute hypoxic respiratory failure, resolved
Right lung pneumonia
Nonischemic myocardial injury
Bicuspid aortic valve with moderate aortic stenosis
Hypertension
Hyperlipidemia
Sick sinus syndrome s/p dual-chamber Medtronic pacemaker 06/2021
Daily alcohol use
GERD
Former smoker
Echo 09/13/2023: Normal LV, RV size and function, EF 55 to 60%, bicuspid aortic valve with moderate aortic stenosis mean gradient 22 mmHg, mild to moderate MR.
Echo 02/27/2024: Study pending
Plan:
-Presented with SOB and cough. Found to have acute PNA and started on abx per primary service.
-Cardiology consulted for evaluation of possible acute heart failure. ProBNP 228 and appears euvolemic on exam. No indication for diuresis at this time.
-Symptoms are improving with abx.
-Echo pending 02/26.
-Elevated troponin noted, peak at 0.039, trending down thereafter. Suspect nonischemic myocardial injury in the setting of pneumonia.
-Consider outpatient ischemic evaluation.
-If echo stable, ok for discharge from a cardiac standpoint.
-Follow up w/ Dr. Guerra.
HPI: Patient is a pleasant 73-year-old male with a past medical history significant for hypertension, hyperlipidemia, moderate aortic stenosis, mild to moderate MR, sick sinus syndrome status post dual-chamber Medtronic pacemaker 06/2021, former
smoker who presents with a 1 day history of sudden onset shortness of breath and cough. In the emergency department, patient was noted to be hypoxic on room air with improvement on nasal cannula. Chest x-ray in the emergency department
demonstrated right-sided pneumonia and patient was initiated on antibiotic therapy. Patient afebrile no white count however significant improvement in overall breathing. Patient was evaluated by pulmonology who recommended transition to oral
antibiotic therapy. Due to acute onset and resolution, there was concern for pulmonary edema however this was not demonstrated on imaging. BNP 228. Leading to this event, no chest pain, other episodes of shortness of breath, PND, orthopnea,
edema, or abdominal distention. In review patient today, he reports that he overall feels well and back to baseline without shortness of breath, cough, chest pain, shortness of breath, palpitations, lightheadedness, dizziness, near-syncope,
syncope, PND, orthopnea, edema, or weakness.
Progress Note - Wireless Watcher
Subjective
Date of Service: February 27, 2024
Feeling well. No SOB or chest pain.
Objective
Labs:
02/27/24 06:28
02/26/24 06:26
Labs
Hgb 14.3 g/dL (13.0-18.0) 02/27/24 06:28
Hct 42.2 % (39.0-52.0) 02/27/24 06:28
Plt Count 201 10^3/uL (130-400) 02/27/24 06:28
Sodium 137 mmol/L (135-145) 02/26/24 06:26
Potassium 4.2 mmol/L (3.5-5.1) 02/26/24 06:26
BUN 21 mg/dl (9-20) H 02/26/24 06:26
Creatinine 0.8 mg/dL (0.7-1.3) 02/26/24 06:26
Glucose 120 mg/dl (70-99) H 02/26/24 06:26
Troponins
02/24/24 02/24/24 02/25/24
16:34 18:06 01:04
Troponin I < 0.012 0.035 H* D 0.039 H*
02/25/24
06:40
Troponin I 0.025 D
Vital Signs and I&O:
Vital Signs
Temp Pulse Resp BP Pulse Ox
98.4 F 71 18 160/82 97
02/27/24 07:00 02/27/24 07:00 02/27/24 07:00 02/27/24 07:00 02/27/24 07:00
Vital Signs
Temp Pulse Resp BP Pulse Ox
98.4 F 71 18 160/82 97
02/27/24 07:00 02/27/24 07:00 02/27/24 07:00 02/27/24 07:00 02/27/24 07:00
Intake & Output
02/25/24 02/26/24 02/27/24 02/28/24
06:59 06:59 06:59 06:59
Intake Total 360 / 360 490 / 490
Balance 360 / 360 490 / 490
Physical Exam
Physical Exam
GEN: No distress, awake, alert, oriented x3
HEENT: supple, anicteric, mmm
LUNGS: CTA b/l, no wheezes/rales
CV: Reg, S1/S2, 2/6 syst murmur
EXT: No clubbing, cyanosis, or edema
NEURO: Gross non-focal
SKIN: Warm, dry, no rash
[2024-02-27 11:00] VITALS: BP 179/89
--- NOTE | 2024-02-27 11:17 | W.DS.TRANS ---
Addendum entered and electronically signed by Jose Martin Harrington MD 02/28/24 15:53:
Nonischemic troponin elevation
Original Note:
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
-
Discharge Instructions:
Discharge Diagnosis/Procedures Multi lobar pneumonia treated as community-
acquired
Essential hypertension
Troponin elevation likely nonischemic myocardial
injury
Diet Low Cholesterol
Activity As tolerated
Driving Restrictions As prior to admission
Instructions:
Stand-Alone Forms:
Changes to Home Medications: Yes
Discharge Medications:
DC Medications w/original date entered in [employer]
amlodipine 10 mg tablet 10 mg PO DAILY 02/24/24
labetalol 200 mg tablet 100 mg PO BID 02/24/24
pantoprazole 40 mg tablet,delayed release 40 mg PO DAILY 02/24/24
primidone 250 mg tablet 125 mg PO BID 02/24/24
valsartan 320 mg tablet 320 mg PO QPM 02/24/24
aspirin 81 mg tablet,delayed release 81 mg PO DAILY #30 tabs 02/27/24
doxycycline hyclate 100 mg capsule 100 mg PO Q12 #10 caps 02/27/24
thiamine HCl (vitamin B1) 100 mg tablet 200 mg (2 x 100 mg) PO DAILY #30 tabs 02/27/24
Home Medication Changes
aspirin 81 mg tablet,delayed release 81 mg PO DAILY #30 tabs 02/27/24
doxycycline hyclate 100 mg capsule 100 mg PO Q12 #10 caps 02/27/24
thiamine HCl (vitamin B1) 100 mg tablet 200 mg (2 x 100 mg) PO DAILY #30 tabs 02/27/24
Pending Results: No
Total time spent discharging patient (in min): 38
--- NOTE | 2024-02-27 11:17 | W.DCSUMMARY ---
Discharge Summary
Discharge Data
Date of Admission: 02/24/24
Date of Discharge: 02/27/24
Total time spent discharging patient (in min): 38
-
Pending Results: No
Hospital Course
73 yo Male with a history of hypertension hyperlipidemia sick sinus syndrome with pacemaker placement and aortic stenosis presenting with acute onset of shortness of breath and on arrival to the ED initially hypoxic requiring 6 L of nasal flow
oxygen. Initial impression after CT imaging and radiologic imaging showed a right-sided infiltrate felt to be in relation to a multi lobar pneumonia and was treated with empiric antibiotics with ceftriaxone and Zithromax. Given his sudden onset
there was also some suspicion of possible underlying congestive heart failure component. proBNP was only measured at 228 troponins were mildly elevated he was seen by both the cardiology service and pulmonary service on consultation. He exhibited
no significant leukocytosis there is no preceding shortness of breath PND or orthopnea. He was transition to oral doxycycline for discharge plan totaling 7 days of therapy. A follow-up chest x-ray on 23 February showed further resolution of right sided
infiltrate that were noted to be multilobar on presentation on CT imaging. Although the patient is followed up with an outpatient chrome plater helper Dr. Garo Guerra unable to obtain appointment in the coming week and as result a follow-up 2D
echocardiogram will be done prior to his discharge. He was started on aspirin therapy 81 mg daily and was felt that the patient would likely benefit from an outpatient ischemic evaluation in the setting of mild troponin elevation with his
respiratory failure on presentation. Given his admitted alcohol use history the patient will also be placed on daily thiamine called into his local pharmacy along with his doxycycline and aspirin. Presuming there is no significant changes 2D
echocardiogram this afternoon the patient be discharged in stable condition for follow-up with his routine chrome plater helper and PCP
Discharge Plan
-
Patient Disposition: Home (Routine Discharge)
Discharge Diagnosis/Procedures: Multi lobar pneumonia treated as community-acquired
Essential hypertension
Troponin elevation likely nonischemic myocardial injury
Diet: Low Cholesterol
Activity: As tolerated
Driving Restrictions: As prior to admission
Referrals:
Mary De La Torre MD [Active] - (4-6 weeks with PFT)
Yogi Azar MD [Family Provider] - in two weeks (Should have outpatient sleep study)
Garo Guerra MD [Active] - in two to three weeks
Prescriptions:
New
doxycycline hyclate 100 mg Capsule
100 mg PO Q12 Qty: 10 0RF
thiamine HCl (vitamin B1) 100 mg Tablet
200 mg PO DAILY Qty: 30 0RF
aspirin 81 mg Tablet,Delayed Release (Dr/Ec)
81 mg PO DAILY Qty: 30 0RF
Continued
labetalol 200 mg Tablet
100 mg PO BID
amlodipine 10 mg Tablet
10 mg PO DAILY
valsartan 320 mg Tablet
320 mg PO QPM
primidone 250 mg tablet
125 mg PO BID
pantoprazole 40 mg tablet,delayed release (DR/EC)
40 mg PO DAILY
Discharge Orders:
Discharge Patient (As Directed); Ordered 02/27/24
Ordered By: Jose Martin Harrington
Discharge Date and Time
Print Language: [place]
--- NOTE | 2024-02-27 12:14 | W.PN.PUL3 ---
Today's Communication / Plan
-
Doing well, no new events
Abx continued, transition to oral course
We discussed outpatient sleep FU
Discharge planning per team
Assessment
-
73-year-old male with history of hypertension, hyperlipidemia, sick sinus syndrome with pacemaker placement and aortic stenosis who presents with acute onset of shortness of breath. He also had some nonspecific symptoms of lightheadedness,
dizziness and loose stool. Found to be hypoxic requiring 6 L. We are asked to help from pulmonary standpoint
Acute hypoxic respiratory insufficiency, 87% room air in the ED
Right-sided infiltrate per CT imaging
Suspected Multi lobar pneumonia
Cannot rule out component of heart failure
Crackles on exam in ED
Presently resolved
Hypertension, poorly controlled
Mildly elevated troponin noted
Conditions present prior to admission
Hypertension/hyperlipidemia
Sick sinus syndrome, history of pacemaker
Moderate aortic stenosis
Bicuspid aortic valve
Mild pulm hypertension, PA pressure 45, per echo August 2023
50+ pack year history of smoking quit 2012
Daily alcohol use
Suspected sleep disordered breathing
Plan/recommendations
At this time, patient appears to be comfortable. He states he is feeling much better, back to his baseline.
Rapid onset and rapid improvement suggest possibility of pulmonary edema
Chest x-ray today has improved
Reviewed outpatient records. Patient apparently has poorly controlled blood pressure
Patient denies any dietary indiscretion or significant weight changes. He admits to chronic lower extreme edema
EKG with paced rhythm
Moving forward
Continue with empiric antibiotics for presumed community-acquired pneumonia
Okay to transition to doxycycline to complete 7-day course
Rapid onset and rapid improvement suggest possible component of pulm edema
proBNP 228
Mildly elevated troponin noted
EKG with paced rhythm
Consider follow-up with broadcast chief engineer (Garo Guerra). Last saw 01/26/24
If symptoms persist, may require additional testing, cardiac evaluation
Would recommend outpatient sleep evaluation given cardiac comorbidities, we discussed again today
Reviewed pathophysiology of untreated sleep disordered breathing
Reviewed with patient
Reviewed with primary service
Disposition efforts
Subjective Data
-
Date of Service:
Date of Service: February 27, 2024
Chief Complaint: Pulmonary Follow Up
Subjective:
doing well today, stable on room air
ready to go home
Objective Data
Data Reviewed
Vital Signs / I&O / Oxygen:
Vital Signs
Temp Pulse Resp BP Pulse Ox
97.6 F 66 18 179/89 99
02/27/24 11:00 02/27/24 11:00 02/27/24 11:00 02/27/24 11:00 02/27/24 11:00
Intake and Output
02/26/24 02/27/24 02/28/24
06:59 06:59 06:59
Intake Total 360 / 360 490 / 490
Balance 360 / 360 490 / 490
SaO2 99
Nasal Cannula flow liters per 5
minute
Physical Exam
General: Comfortable
HEENT: Normocephalic, Anicteric and Other (Narrow posterior oropharynx)
Cardiovascular: S1-S2, Regular Rhythm, Murmur (n), Rub (n), Peripheral Edema (n) and Calf Tenderness (n)
Respiratory: Clear, Wheeze (n), Rhonchi (n) and Non-Labored Respirations
GI: Soft, Non Distended and Non Tender
Neurology: Awake, Alert and No Motor Deficits (Ambulating)
Skin: Jaundice (n), Rash (n) and Bruising (n)
Labs/Micro/Reports
Lab Data
02/27/24 06:28
02/26/24 06:26
Microbiology
02/24/24 17:34 Blood/Venous Blood Culture - Preliminary
No Growth in 48 hours- Final report to follow
02/24/24 17:34 Blood/Venous Blood Culture - Preliminary
No Growth in 48 hours- Final report to follow
02/24/24 16:34 Nasal Swab Influenza Types A & B (CINDY) - Final
Negative for Influenza A & B, NAAT
Negative results must be combined with clinical observations
and patient history.
Nucleic Acid Amplification test (NAAT)performed on the
[employer] platform.
[2024-02-27 15:00] VITALS: BP 173/79
--- NOTE | 2024-02-27 15:07 | PN.CDI ---
CDI
- -
CDI:
Physician Documentation Request
Admit Date: 02/24/24 19:00
Dear Doctor Juany,
Patient is admitted with pneumonia. Troponin noted to be elevated.
Hospitalist states 'likely nonischemic myocardial injury'
Cardiology consult states ' possibly type II NJ in the setting of respiratory failure'
Please clarify the etiology of the elevated troponin:
Nonischemic myocardial injury
Type II NJ
Other
Use of terms such as suspected, likely, concern for, or probable (associated with a specific diagnosis that is being evaluated, monitored, or treated as if it exists) are acceptable and can be coded in the inpatient setting, when documented at the
time of discharge.
Thank you,
Sujata Dumont RN, BSN
CDI Specialist
tiger text
Please use your independent medical judgment in providing your response.
== END 2024-02-27 16:30 | disposition home or self-care (01) | DRG 193 ==
LOC: 3 WEST ACU 19:00
PROVIDERS: Clinical Nurse Specialist Family Health; Emergency Medicine; ADMITTING PHYSICIAN Hospitalist; ATTENDING PHYSICIAN Internal Medicine; CONSULT PHYSICIAN Internal Medicine Cardiovascular Disease; CONSULT PHYSICIAN Internal Medicine Critical Care Medicine; EMERGENCY PHYSICIAN Emergency Medicine; FAMILY PHYSICIAN Internal Medicine
DX: J18.9 Pneumonia, unspecified organism (principal); J96.01 Acute respiratory failure with hypoxia; I5A Non-ischemic myocardial injury (non-traumatic); Z11.52 Encounter for screening for COVID-19; Z87.891 Personal history of nicotine dependence; I10 Essential (primary) hypertension; I27.20 Pulmonary hypertension, unspecified; E78.00 Pure hypercholesterolemia, unspecified
CPT/HCPCS: 71045; 71046; 71275; 80048; 80053; 83605; 83880; 84484; 85025; 85379; 87040; 87502; 87811; 93005; 93306; 96365; 96375; 97161; 99291; Q9967